=== PATIENT | male | born 1975 | race African-American/Black ===

== ENCOUNTER 2019-11-12 21:59 | Emergency (ER) | payer SELFPAY ==
[2019-11-12] MEDS ORDERED: HYDROCODONE/ACETAMINOPHEN 5-325 MG TABLET PO ONE (22:30)
--- NOTE | 2019-11-12 22:32 | ER Document Report ---
ED Medical Screen (RME) - General Chief Complaint: Arm Injury Stated Complaint: FALL/ARM INJURY Time Seen by Provider: 11/12/19 22:28 Information source: Patient Notes: Patient states that he fell 8 feet from a ladder this morning. Patient states he landed on concrete. No head injury or loss of consciousness. Patient complains of right upper back tenderness and right shoulder tenderness. I have greeted and performed a rapid initial assessment of this patient. A comprehensive ED assessment and evaluation of the patient, analysis of test results and completion of the medical decision making process will be conducted by additional ED providers. TRAVEL OUTSIDE OF THE [place] IN LAST 30 DAYS: No - Related Data Allergies/Adverse Reactions: No Known Allergies Allergy (Unverified 01/19/16 04:09) Past Medical History - Immunizations Hx Diphtheria, Pertussis, Tetanus Vaccination: Yes Physical Exam - Vital signs Vitals: Temp Pulse Resp BP Pulse Ox 99.3 F 102 H 20 107/61 100 11/12/19 22:15 11/12/19 22:15 11/12/19 22:15 11/12/19 22:15 11/12/19 22:15 - General General appearance: Alert In distress: Mild Notes: Right shoulder joint tenderness, 2+ radial pulse, respirations unlabored Course - Vital Signs Vital signs: Temp Pulse Resp BP Pulse Ox 99.3 F 102 H 20 107/61 100 11/12/19 22:25 11/12/19 22:15 11/12/19 22:15 11/12/19 22:15 11/12/19 22:15
--- NOTE | 2019-11-12 23:09 | RADIOLOGY REPORT (SQ) ---
CLINICAL HISTORY: fall from ladder, R shoulder pain COMPARISON: None. TECHNIQUE: XR SHOULDER 2 OR MORE VIEWS 11/12/2019 10:30 PM CDT FINDINGS: There is no fracture. Joint spaces are preserved. Soft tissues are unremarkable. IMPRESSION: No acute osseous findings.
--- NOTE | 2019-11-12 23:10 | RADIOLOGY REPORT (SQ) ---
CLINICAL HISTORY: fall from ladder, R thoracic pain COMPARISON: None. TECHNIQUE: XR CHEST 2 VIEWS 11/12/2019 10:30 PM CDT FINDINGS: Cardiac silhouette is normal in size. Lungs are clear without consolidation, atelectasis, mass or edema. There is no pleural effusion. There is no pneumothorax. There are no acute osseous findings. IMPRESSION: Clear lungs.
[2019-11-13] MEDS ORDERED: KETOROLAC TROMETHAMINE 60 MG/2 ML SDV IM ONE (04:46)
[2019-11-13] MEDS ORDERED: HYDROCODONE/ACETAMINOPHEN 5-325 MG (6 TAB/ER DISP) PO PRN (04:46)
--- NOTE | 2019-11-13 04:51 | ER Document Report ---
ED General - General Chief Complaint: Arm Injury Stated Complaint: FALL/ARM INJURY Time Seen by Provider: 11/12/19 22:28 Notes: Patient is a 44-year-old -[place] male with no reported past medical history presents to the emergency department with a chief complaint of right shoulder pain that occurred after an injury earlier today. Patient reports that he was up on a ladder working on his shingles on a roof when his dog clipped the ladder causing him to fall on an outstretched arm. He states that he has pain in the right shoulder at this point limiting his range of motion. He denies any deformities, numbness, tingling or weakness. TRAVEL OUTSIDE OF THE [place] IN LAST 30 DAYS: No - Related Data Allergies/Adverse Reactions: No Known Allergies Allergy (Unverified 01/19/16 04:09) Past Medical History - General Information source: Patient - Social History Smoking Status: Current Every Day Smoker Family History: Reviewed & Not Pertinent Patient has homicidal ideation: No - Immunizations Hx Diphtheria, Pertussis, Tetanus Vaccination: Yes Review of Systems - Review of Systems Musculoskeletal: Joint pain -: Yes All other systems reviewed and negative Physical Exam - Vital signs Vitals: Temp Pulse Resp BP Pulse Ox 99.3 F 102 H 20 107/61 100 11/12/19 22:15 11/12/19 22:15 11/12/19 22:15 11/12/19 22:15 11/12/19 22:15 - General General appearance: Appears well, Alert In distress: None - Respiratory Respiratory status: No respiratory distress Chest status: Nontender Breath sounds: Normal Chest palpation: Normal - Cardiovascular Rhythm: Regular Heart sounds: Normal auscultation - Extremities General upper extremity: Other - Limited exam of the right shoulder secondary to pain. Patient grimaces with any forward elevation, lateral abduction of or posterior movements. Tender to the anterior shoulder. No tenderness over the acromion or AC joint. There is some mild tenderness to the right scapular region as well. No deformities. 2+ radial distally. Radiology Teacher strength 5 out of 5 bilaterally. - Neurological Neuro grossly intact: Yes Cognition: Normal Orientation: AAOx4 [place] Coma Scale Eye Opening: Spontaneous [place] Coma Scale Verbal: Oriented Abby Coma Scale Motor: Obeys Commands [place] Coma Scale Total: 15 Speech: Normal - Psychological Associated symptoms: Normal affect, Normal mood - Skin Skin Temperature: Warm Skin Moisture: Dry Skin Color: Normal Course - Re-evaluation Re-evalutation: 11/13/19 04:49 X-rays negative for any acute process per radiologist. Patient's history and physical consistent with a shoulder contusion status post fall. He will be placed in a sling. Given a short course of narcotic pain medication and an injection of tramadol here. Counseled him regarding the importance of outpatient follow-up with Ortho for ongoing repeat evaluation and further management as required. Advised to return here or any ER immediately with any new, persistent or worsening symptoms. He verbalized understood and agreed. - Vital Signs Vital signs: Temp Pulse Resp BP Pulse Ox 99.3 F 102 H 20 107/61 100 11/12/19 22:25 11/12/19 22:15 11/12/19 22:15 11/12/19 22:15 11/12/19 22:15 Discharge - Discharge Clinical Impression: Shoulder contusion Qualifiers: Encounter type: initial encounter Laterality: right Qualified Code(s): S40.011A - Contusion of right shoulder, initial encounter Fall Qualifiers: Encounter type: initial encounter Qualified Code(s): W19.XXXA - Unspecified fall, initial encounter Condition: Stable Disposition: HOME, SELF-CARE Instructions: Ice & Elevation ([facility]) Additional Instructions: Please follow-up with the orthopedic doctor as discussed. Return here or any ER immediately with any new, persistent or worsening symptoms. Referrals: MARION RINALDI JR, [ACTIVE PROVISIONAL STAFF] - Follow up as needed
[2019-11-13 05:21] VITALS: BP 107/75
== END 2019-11-13 05:21 | disposition home or self-care (01) ==
LOC: ER 21:59
DX: S40.011A Contusion of right shoulder, initial encounter (principal); M25.511 Pain in right shoulder; W11.XXXA Fall on and from ladder, initial encounter; Y93.H3 Activity, building and construction; Y92.89 Other specified places as the place of occurrence of the external cause; F17.200 Nicotine dependence, unspecified, uncomplicated
CPT/HCPCS: 99283; 96372; 71046; 73030; J1885